=== PATIENT | female | born 1990 | race Caucasian/White ===

== ENCOUNTER 2018-03-13 22:08 | Emergency (ER) | payer SELFPAY ==
[2018-03-13 23:09] LABS: ABSOLUTE EOSINOPHILS # (AUTO) 0.3 10^3/uL (0.0-0.6); ABSOLUTE LYMPHOCYTES (AUTO) 2.1 10^3/uL (0.5-4.7); ABSOLUTE MONOCYTES (AUTO) 0.6 10^3/uL (0.1-1.4); ABSOLUTE NEUT (AUTO) 6.6 10^3/uL (1.7-8.2); BASOPHILS % (AUTO) 0.3 % (0-2); EOSINOPHILS % (AUTO) 3.1 % (0-6); HEMATOCRIT 44.1 % (36.0-47.0); HEMOGLOBIN 15.4 g/dL (12.0-15.5); LYMPHOCYTES % (AUTO) 21.5 % (13-45); MEAN CORPUSCULAR HEMOGLOBIN 33.5 pg (27.0-33.4); MEAN CORPUSCULAR VOLUME 96 fl (80-97); MONOCYTES % (AUTO) 6.7 % (3-13); PLATELET COUNT 258 10^3/uL (150-450); RED BLOOD COUNT 4.61 10^6/uL (3.72-5.28); RED CELL DISTRIBUTION WIDTH 12.2 % (11.5-14.0); SEGMENTED NEUTROPHILS % (AUTO) 68.4 % (42-78); TOTAL CELLS COUNTED % (AUTO) 100 %; WHITE BLOOD COUNT 9.6 10^3/uL (4.0-10.5)
[2018-03-13 23:15] LABS: AMORPHOUS SEDIMENT,URINE TRACE /HPF; APPEARANCE,URINE CLOUDY; BILIRUBIN,URINE NEGATIVE (NEGATIVE); COLOR,URINE YELLOW; GLUCOSE, URINE NEGATIVE (NEGATIVE); KETONES,URINE NEGATIVE (NEGATIVE); LEUKOCYTE ESTERASE,URINE MODERATE (NEGATIVE); NITRITE,URINE NEGATIVE (NEGATIVE); PROTEIN,URINE NEGATIVE (NEGATIVE); URINE SPECIFIC GRAVITY 1.023
[2018-03-13 23:28] LABS: ALANINE AMINOTRANSFERASE 22 U/L (9-52); ALBUMIN 4.7 g/dL (3.5-5.0); ALKALINE PHOSPHATASE 58 U/L (38-126); ANION GAP 12 (5-19); ASPARTATE AMINO TRANSFERASE 23 U/L (14-36); BILIRUBIN,DIRECT 0.3 mg/dL (0.0-0.4); BILIRUBIN,TOTAL 0.5 mg/dL (0.2-1.3); BLOOD UREA NITROGEN 12 mg/dL (7-20); CALCIUM 9.9 mg/dL (8.4-10.2); CARBON DIOXIDE 32 mmol/L (22-30); CHLORIDE 101 mmol/L (98-107); GLUCOSE 74 mg/dL (75-110); LIPASE 44.5 U/L (23-300); POTASSIUM 3.7 mmol/L (3.6-5.0); SODIUM 144.5 mmol/L (137-145); TOTAL PROTEIN 7.5 g/dL (6.3-8.2)
[2018-03-14] MEDS ORDERED: MAG HYDROX/AL HYDROX/SIMETH SUSP 30 ML UDCUP PO ONE (01:27)
[2018-03-14] MEDS ORDERED: METOCLOPRAMIDE HCL ORAL SOLN 10 MG/10 ML UDCUP PO ONE (01:27)
[2018-03-14] MEDS ORDERED: LIDOCAINE 2% VISCOUS SOLN 20 ML UDCUP PO ONE (01:27)
--- NOTE | 2018-03-14 01:35 | ER Document Report ---
ED General - General Chief Complaint: Abdominal Pain Stated Complaint: ABDOMINAL PAIN Time Seen by Provider: 03/14/18 01:05 TRAVEL OUTSIDE OF THE [place] IN LAST 30 DAYS: No - HPI Notes: Patient is a 27-year-old female with no significant past medical history who presents to the ED complaining of generalized abdominal cramping intermittently over the last 6 days that is worse after food intake. Pt will have occ nausea w /o any vomiting. Patient states that she has noticed the discomfort primarily in her epigastrium to start. Patient states that she currently does not have any abdominal pain, but her mother wanted her checked out. Patient states that she has had a decreased p.o. intake, but is still eating and drinking. She is urinating normally and having normal bowel movements. She has not had any vaginal odor, bleeding, or discharge. Her last menstrual period was a week ago and was normal. Denies any drug allergies. Denies any headache, fever, neck pain, URI, sore throat, chest pain, palpitations, syncope, cough, shortness of breath, wheeze, dyspnea, nausea/vomiting/diarrhea, urinary retention, dysuria, hematuria, back pain, loss of control of bowel or bladder, numbness/tingling, muscle paralysis/weakness, or rash. Past Medical History - Social History Smoking Status: Current Every Day Smoker Chew tobacco use (# tins/day): No Frequency of alcohol use: None Drug Abuse: None Family History: Reviewed & Not Pertinent Patient has suicidal ideation: No Patient has homicidal ideation: No Renal/ Medical History: Denies: Hx Peritoneal Dialysis Review of Systems - Review of Systems -: Yes All other systems reviewed and negative Physical Exam - Vital signs Vitals: Temp Pulse Resp BP Pulse Ox 98.9 F 72 18 124/75 100 03/13/18 23:15 03/13/18 23:15 03/13/18 23:15 03/13/18 23:15 03/13/18 23:15 - Notes Notes: PHYSICAL EXAMINATION: GENERAL: Well-appearing, well-nourished and in no acute distress. HEAD: Atraumatic, normocephalic. EYES: Pupils equal round and reactive to light, extraocular movements intact, sclera anicteric, conjunctiva are normal. ENT: Nares patent and without discharge. oropharynx clear without exudates. No tonsilar hypertrophy or erythema. Moist mucous membranes. NECK: Normal range of motion, supple without lymphadenopathy LUNGS: Breath sounds clear to auscultation bilaterally and equal. No wheezes rales or rhonchi. HEART: Regular rate and rhythm without murmurs, rubs, gallops. ABDOMEN: Soft, nontender, nondistended abdomen. No guarding, no rebound. No masses appreciated. Normal bowel sounds present. No CVA tenderness bilaterally. I was palpating and pushing multiple times as her history is non- specific and she has no tenderness anywhere. Vitale negative. No tenderness at [place] or in the lower quadrant. Extremities: No cyanosis, clubbing, or edema b/l. Peripheral pulses 2+. Capillary refill less than 3 seconds. NEUROLOGICAL: Normal speech, normal gait. PSYCH: Normal mood, normal affect. SKIN: Warm, Dry, normal turgor, no rashes or lesions noted. Course - Re-evaluation Re-evalutation: 03/14/18 01:36 Patient is an afebrile, well-hydrated, 27-year-old female who presents to the ED with abdominal pain, unspecified. Vitals are acceptable without any significant tachycardia, tachypnea, or hypoxia. PE is otherwise unremarkable. Patient's abdomen is completely soft and nontender. Patient is asymptomatic at this time. Patient primarily has discomfort after p.o. intake. GI cocktail was provided, patient is tolerating p.o. without difficulties. Patient is nontoxic-appearing. I thoroughly reviewed each area of the abdomen with the patient as I was palpating and explained to her my low suspicions as her CBC, CMP, lipase, hCG, urinalysis were all unremarkable and her exam was benign. Low suspicion/risk for acute appendicitis, bowel obstruction, acute cholecystitis, acute cholangitis, perforated diverticulitis, incarcerated hernia , pancreatitis, perforated ulcer, peritonitis, sepsis, pelvic inflammatory disease, ectopic , tubo-ovarian abscess, ovarian torsion, or other systemic emergent condition at this time. Patient is aware that her condition can change from initial presentation and she needs to monitor symptoms closely and seek medical attention if any acute changes. I will send her home with a prescription for Zofran to use as needed as well as omeprazole. Conservative measures otherwise for symptoms. Recheck with your PCM in 2-3 days. Consider consult with a grape picker. Return to the ED with any worsening/ concerning symptoms otherwise as reviewed in discharge. Patient is in agreement. 03/14/18 02:09 Pt's mother did call and speak with our charge nurse and was very upset that we weren't doing any other diagnostics. I did not speak with the mother as the patient is an adult. I did review labs and case with Dr. Morris who agreed with my care of this patient and that no imaging is warranted at this time and she can be discharged. I did speak with the patient and she 100% is understanding and does not want any other testing at this time based on my evaluation and current lab work. Pt is only upset right now due to embarrassment as her mother called and 'created a scene.' - Vital Signs Vital signs: Temp Pulse Resp BP Pulse Ox 98.9 F 67 18 123/83 100 03/13/18 23:15 03/14/18 01:06 03/14/18 01:06 03/14/18 01:06 03/14/18 01:06 - Laboratory Result Diagrams: 03/13/18 22:35 03/13/18 22:35 Laboratory results interpreted by me: 03/13/18 03/13/18 03/13/18 22:35 22:35 22:35 MCH 33.5 H Carbon Dioxide 32 H Glucose 74 L Urine Urobilinogen 4.0 H Ur Leukocyte Esterase MODERATE H Discharge - Discharge Clinical Impression: Abdominal pain Qualifiers: Abdominal location: generalized Qualified Code(s): R10.84 - Generalized abdominal pain Condition: Stable Disposition: HOME, SELF-CARE Instructions: Abdominal Pain ([facility]), Antinausea Medication ([facility]), Low-Fat Diet ( [facility]), Observation for Appendicitis ([facility]) Additional Instructions: Maintain adequate fluid and food intake [place] diet ([employer] Bananas, rice, apples, toast, etc Zofran as needed tylenol if needed Monitor for any worsening symptoms Make sure you are staying hydrated enough to urinate and have normal BM's Recheck with your PCM in 2-3 days Consider consult with Gastroenterology for ongoing/worsening symptoms Return to the ED with any worsening symptoms and/or development of fever, headache, chest pain, palpitations, syncope, shortness of breath, trouble breathing, abdominal pain, n/v/d, blood in stool/urine, weakness, or other worsening symptoms that are concerning to you. Prescriptions: Omeprazole 20 mg PO DAILY #30 tablet. Ondansetron [Zofran Odt 4 mg Tablet] 1 - 2 tab PO Q4H PRN #15 tab.rapdis PRN Reason: For Nausea/Vomiting Forms: Smoking Cessation Education Referrals: DANE MILLS MD [ACTIVE STAFF] - Follow up in 3-5 days
[2018-03-14 02:28] VITALS: BP 105/69
== END 2018-03-14 02:27 | disposition home or self-care (01) ==
LOC: ER 22:08
DX: R10.84 Generalized abdominal pain (principal); R10.13 Epigastric pain; R11.0 Nausea; R63.0 Anorexia; F17.200 Nicotine dependence, unspecified, uncomplicated
CPT/HCPCS: 99284; 36415; 83690; 84703; 85025; 80053; 81001; J3490

== ENCOUNTER 2019-02-09 09:49 | Emergency (ER) | payer MEDICAID ==
[2019-02-09] MEDS ORDERED: RABIES VACCINE (PCEC)/PF 2.5 UNIT/1 ML KIT IM ONE ×2 (10:37→11:51)
[2019-02-09] MEDS ORDERED: RABIES IMMUNE GLOBULIN INJ/PF 300 UNIT/2 ML SDV IM ONE ×2 (10:37→11:12)
--- NOTE | 2019-02-09 10:44 | ER Document Report ---
HPI - HPI Patient complains to provider of: dog bite Time Seen by Provider: 02/09/19 10:10 Pain Level: 1 Context: Healthy 28-year-old female presents emergency department after dog bite yesterday at 7:15 AM. She states that the dogs were on the side of the road and she went to help get them across the road and she was bit in the left gluteus and the left distal lower extremity on her calf. She said the dogs escaped and they have not been found by animal control. She denies any fevers, paresthesias to the areas of the bites, headaches, weakness, neck stiffness, or any other symptoms at this time. - REPRODUCTIVE Reproductive: DENIES: : Past Medical History - Social History Smoking Status: Never Smoker Frequency of alcohol use: None Drug Abuse: None Family History: Reviewed & Not Pertinent Patient has suicidal ideation: No Patient has homicidal ideation: No Renal/ Medical History: Denies: Hx Peritoneal Dialysis Past Surgical History: Reports: Hx Urinary Tract Surgery - bladder sx as a child Vertical Provider Document - CONSTITUTIONAL Notes: PHYSICAL EXAMINATION: Reviewed vital signs and charting by RN GENERAL: Alert, interacts well. No acute distress. HEAD: Normocephalic, atraumatic. EYES: Pupils equal, round Extraocular movements intact. EXTREMITIES: Moves all 4 extremities spontaneously. No edema, No cyanosis. Very small 1 mm scab bite fidencio on the left posterior calf, ecchymosis on the left gluteus with no break in the skin PSYCH: Normal affect, normal mood. SKIN: Warm, dry, normal turgor. No rashes or lesions noted. - INFECTION CONTROL TRAVEL OUTSIDE OF THE [place] IN LAST 30 DAYS: No Course - Re-evaluation Re-evalutation: 02/09/19 10:40 Overall well-appearing. Patient states that it may have been a provoked attack as she was trying to help the dog's across the road. She said animal control did not find the dog's and we had a discussion regarding postexposure prophylaxis. I said that we cannot guarantee that she was not exposed as it is endemic in the area but I do feel that she is fairly low risk. Because of this uncertainty patient, through shared decision making, wanted to proceed with postexposure prophylaxis. I will obtain the schedule from charge nurse and give this to the patient for subsequent treatments. Also, I will give her a 3-day course of Augmentin prophylaxis for skin and soft tissue infection. She is in agreement with this plan and she is stable for discharge. - Vital Signs Vital signs: Temp Pulse Resp BP Pulse Ox 97.9 F 86 18 119/63 100 02/09/19 09:56 02/09/19 09:56 02/09/19 09:56 02/09/19 09:56 02/09/19 09:56 Discharge - Discharge Clinical Impression: Need for post exposure prophylaxis for rabies Dog bite Qualifiers: Encounter type: initial encounter Qualified Code(s): W54.0XXA - Bitten by dog, initial encounter Condition: Good Disposition: HOME, SELF-CARE Additional Instructions: You were seen in the emergency department this morning for a dog bite. Because it was provoked I have low concern for rabies exposure but cannot be 100% certain as we have not quarantined the dog's at this time. We discussed 2 potential plans, one being watchful waiting and closely following with animal control, and the second being going ahead with prophylaxis. We decided that rabies prophylaxis was the plan. With that, you received a two shots here in the emergency department. I have provided you with a schedule for remaining shots that you will need on days 3, 7, and 14. We are going to give you a copy of the schedule and you will be able to take it with you when you go to [place] and get the final shot there. Like we talked about if animal control finds the animal and they ultimately do not have rabies you can either discontinue the treatment plan or you can continue to completion and be vaccinated against rabies. For the remaining shots she can come here or you can go to your primary doctor's office. If you develop fever, chills, stiff neck, severe headache, altered mental status, redness or swelling around the bites, or you have any other concerns please merely return to the emergency department. Prescriptions: Amox Tr/Potassium Clavulanate [Augmentin 875-125 Tablet] 1 tab PO BID 6 Days tablet
[2019-02-09] MEDS ORDERED: AMOXICILLIN TR/POT CLAVULANATE 500-125 MG TAB PO ONE (10:58)
[2019-02-09 12:25] VITALS: BP 110/63
== END 2019-02-09 12:35 | disposition home or self-care (01) ==
LOC: ER 09:49
DX: S80.872A Other superficial bite, left lower leg, initial encounter (principal); S30.0XXA Contusion of lower back and pelvis, initial encounter; W54.0XXA Bitten by dog, initial encounter; Z20.3 Contact with and (suspected) exposure to rabies
CPT/HCPCS: 99283; 96372; 90471; 90675; 90376; J3490